=== PATIENT | female | born 2005 ===

== ENCOUNTER 2025-01-08 01:21 | Emergency (ER) | payer SELFPAY ==
[2025-01-08 01:14] VITALS: BP 113/77; PULSE 81; RESP 22; TEMP 36.6; O2SAT 98
--- NOTE | 2025-01-08 01:19 | W.ED.GENAD ---
Discharge Plan Disposition Patient Disposition: [facility] Condition: Stable Discharge Details Clinical Impression: Alcohol intoxication Primary Care Provider: Unknown,Unknown ED Provider: Alec Horn Discharge Instructions Additional Instructions: You were evaluated in the ED for reported unresponsive event. Your vital signs, exam, blood sugar are all normal. You are being released back into protective custody to sober up overnight. Follow-up with your providers as needed once out of protective custody. HPI General Mode of arrival: EMS. Date/Time Provider Initiated Documentation: 01/08/25 01:22. Limitations to Documentation: no limitations. Information obtained by: patient, police, EMS and RN notes reviewed. HPI Narrative: Patient brought into ED by ambulance after a possible seizure. Patient is intoxicated and is in protective custody with police. She had been seen at [facility] earlier and was being brought to corrections here in [facility] to sober up. Per police who were transporting her she has been agitated and aggressive most of the time. Once they got to corrections she had a unresponsive event prompting them to activate EMS here. Per EMS on their arrival she immediately was awake answering appropriately. Patient reporting she had a seizure. Reports she has had seizures before. On arrival here she is belligerent and agitated, still in police custody in handcuffs. Police are here with her. They still have her discharge papers from [facility]. General Stated Complaint: GenMedical EZEQUIEL: 4 Exam Narrative Exam Narrative: Const: WDWN female is agitated, screaming. VS per triage. HEENT: NC/AT. Normal facial exam. Neck: Supple. Trachea midline. Lungs: Normal respiratory effort. Lungs are clear. Cor: RRR without murmur. Good radial pulses. Neuro: A+O x 3. Normal speech. Cranial nerves II - XII grossly intact. No gross motor or sensory deficit. Ext: No C/C/E. Course Vital Signs Vital signs: Vital Signs Temperature 97.8 F 01/08/25 01:14 Pulse 81 01/08/25 01:14 Respiratory Rate 22 01/08/25 01:14 Blood Pressure 113/77 01/08/25 01:14 Pulse Oximetry 98 01/08/25 01:14 Temperature 97.8 F 01/08/25 01:14 Temperature Source Temporal Artery Scan 01/08/25 01:14 Pulse 81 01/08/25 01:14 Respiratory Rate 22 01/08/25 01:14 Blood Pressure 113/77 01/08/25 01:14 Blood Pressure Position Supine 01/08/25 01:14 Pulse Oximetry 98 01/08/25 01:14 Oxygen Delivery Method Room Air 01/08/25 01:14 Oxygen Flow Rate 0 01/08/25 01:14 Pain Level 0 01/08/25 01:14 Medical Decision Making Patient arrives to ED by ambulance after a reported unresponsive event while being transported from [facility] to [facility] in protective custody with alcohol intoxication. Police report that she has been fairly belligerent and agitated throughout transport. Once they arrived at [facility] she became unresponsive. EMS reports that on their arrival, she was immediately awake, alert, not post-ictal and calm for them. Here she is belligerent and screaming once again. She is reporting she has had seizures before. I suspect that this is all behavioral and attempting to avoid going to the correctional facility to sober up. However, even if this was seizure related, she has history of same per her own report, is nonfocal neurologically with no evidence of postictal state. She has already been seen and cleared by [facility]. Her exam, vital signs, blood sugar are all fine here. She will be discharged back into police custody to be transported to corrections where she may sober up. She should follow-up with her primary providers. [facility] All Active Problems (Updated 01/08/25 @ 01:21 by Alec Horn MD) Alcohol intoxication (Acute) Social History Smoking risk assessment performed?: No
[2025-01-08 01:35] VITALS: BP 113/77; PULSE 81; RESP 22; TEMP 36.6; O2SAT 98
== END 2025-01-08 01:42 ==
LOC: ER 01:30
PROVIDERS: Emergency Provider Emergency Medicine
DX: F10.120 Alcohol abuse with intoxication, uncomplicated (principal)
CPT/HCPCS: 96361; 96374; 99283; 99284